=== PATIENT | male | born 2000 | race Two or more races ===

== ENCOUNTER 2020-06-09 23:32 | Emergency (ER) | payer SELFPAY ==
[~2020-06-09] VITALS: Ht 170.2 cm; Wt 81.6 kg
[~2020-06-09 23:32] MED LIST: BACTRIM DS TAB1 EAC1 ORAL; CEPHALEXIN500 MG PO; CLINDAMYCIN HC300 MG ORAL; IBUPROFEN600 MG ORAL; KEFLEX500 MG ORAL; NKM; ONDANSETRON ODT4 MG ORAL; VICODIN1 TA1 ORAL
--- NOTE | 2020-06-09 23:32 | Emergency Room Report ---
History of Present Illness General Chief Complaint: Nausea Source: Patient, EMS Present Illness HPI Patient is a 20-year-old male brought in by EMS after increased nausea and vomiting. Recent ingestion of marijuana. Reports having one episode of emesis. Denies any pain. Ingested an edible reportedly. Denies any current complaints otherwise. Denies any hematemesis. Allergies: Coded Allergies: No Known Allergies (Unverified , 12/07/12) COVID-19 Screening Contact w/high risk pt: No Experienced COVID-19 symptoms?: No COVID-19 Testing performed BRAND COMMUNICATIONS MANAGER: No Patient History Past Medical History: see triage record Reviewed Nursing Documentation: PMH: Agreed; PSxH: Agreed Nursing Documentation-PMH Past Medical History: No Stated History Review of Systems All Other Systems: negative except mentioned in HPI Physical Exam Vital Signs Date Time Temp Pulse Resp B/P (MAP) Pulse Ox O2 Delivery O2 Flow Rate FiO2 06/09/20 23:25 97.3 84 16 142/68 (92) 99 Room Air Sp02 EP Interpretation: reviewed, normal General Appearance: normal inspection, well appearing, no apparent distress, alert, GCS 15 Head: atraumatic ENT: normal ENT inspection, hearing grossly normal, normal voice Neck: normal inspection, full range of motion, supple, no bony tend Respiratory: normal inspection, lungs clear, normal breath sounds, no respiratory distress, no retraction, no wheezing Cardiovascular #1: regular rate, rhythm, no edema Gastrointestinal: normal inspection, normal bowel sounds, non tender, soft, no guarding, no hernia Genitourinary: no CVA tenderness Musculoskeletal: normal inspection, back normal, normal range of motion Neurologic: alert, motor strength/tone normal, music therapist III-XII nml as tested, orien nannette x3, responsive, speech normal, normal inspection Psychiatric: normal inspection, judgement/insight normal, mood/affect normal Skin: no rash Medical Decision Making Diagnostic Impression: Primary Impression: Accidental marijuana overdose Additional Impression: Nausea and vomiting in adult patient ER Course Patient presented for nausea and vomiting. Differential diagnosis include was not limited to marijuana ingestion, hyperemesis, coingestion among others. Because of complexity of patient's case laboratory tests and imaging studies were ordered. Labs Test 06/09/20 23:40 White Blood Count 15.6 K/UL (4.8-10.8) Red Blood Count 4.76 M/UL (4.70-6.10) Hemoglobin 15.4 G/DL (14.2-18.0) Hematocrit 42.0 % (42.0-52.0) Mean Corpuscular Volume 88 FL (80-99) Mean Corpuscular Hemoglobin 32.3 PG (27.0-31.0) Mean Corpuscular Hemoglobin Concent 36.7 G/DL (32.0-36.0) Red Cell Distribution Width 10.9 % (11.6-14.8) Platelet Count 314 K/UL (150-450) Mean Platelet Volume 5.7 FL (6.5-10.1) Neutrophils (%) (Auto) 81.4 % (45.0-75.0) Lymphocytes (%) (Auto) 12.7 % (20.0-45.0) Monocytes (%) (Auto) 4.8 % (1.0-10.0) Eosinophils (%) (Auto) 0.1 % (0.0-3.0) Basophils (%) (Auto) 1.0 % (0.0-2.0) Sodium Level 139 MMOL/L (136-145) Potassium Level 3.5 MMOL/L (3.5-5.1) Chloride Level 103 MMOL/L (98-107) Carbon Dioxide Level 29 MMOL/L (21-32) Anion Gap 7 mmol/L (5-15) Blood Urea Nitrogen 9 mg/dL (7-18) Creatinine 1.0 MG/DL (0.55-1.30) Estimat Glomerular Filtration Rate > 60 mL/min (>60) Glucose Level 138 MG/DL (74-106) Calcium Level 8.7 MG/DL (8.5-10.1) Total Bilirubin 0.3 MG/DL (0.2-1.0) Aspartate Amino Transf (AST/SGOT) 21 U/L (15-37) Alanine Aminotransferase (ALT/SGPT) 17 U/L (12-78) Alkaline Phosphatase 93 U/L (46-116) Total Protein 7.0 G/DL (6.4-8.2) Albumin 4.0 G/DL (3.4-5.0) Globulin 3.0 g/dL Albumin/Globulin Ratio 1.3 (1.0-2.7) Lipase 78 U/L (73-393) Acetaminophen Level < 2 MCG/ML (10-30) Serum Alcohol < 3 mg/dL Last Vital Signs Date Time Temp Pulse Resp B/P (MAP) Pulse Ox O2 Delivery O2 Flow Rate FiO2 06/09/20 23:25 97.3 84 16 142/68 (92) 99 Room Air Status: improved Disposition: HOME, SELF-CARE Condition: Stable Scripts Ondansetron Odt* (ZOFRAN ODT*) 4 Mg Tab.rapdis 4 MG ORAL EVERY 8 HOURS, #10 TAB 0 Refills Prov: Prudencio Cazares MD 06/10/20 Prudencio Cazares MD Jun 09, 2020 23:32
[2020-06-09 23:35] VITALS: BP 142/68
--- NOTE | 2020-06-09 23:35 | NUR ---
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 Patient began to feel nauseous and called 911. Patient breathing is normal and unlabored. NAD noted. Pt in bed, safety measures met; will continue to monitor. He is AAOX4.
[2020-06-09 23:57] LABS: EOSINOPHILS % (AUTO) 0.1 % (0.0-3.0); HEMOGLOBIN 15.4 G/DL (14.2-18.0); LYMPHOCYTES % (AUTO) 12.7 % (20.0-45.0); MEAN CORPUSCULAR VOLUME 88 FL (80-99); MONOCYTES % (AUTO) 4.8 % (1.0-10.0); NEUTROPHILS % (AUTO) 81.4 % (45.0-75.0); PLATELET COUNT 314 K/UL (150-450); RED BLOOD COUNT 4.76 M/UL (4.70-6.10); RED CELL DISTRIBUTION WIDTH 10.9 % (11.6-14.8); WHITE BLOOD COUNT 15.6 K/UL (4.8-10.8)
[2020-06-10 00:08] LABS: ANION GAP 7 mmol/L (5-15); BLOOD UREA NITROGEN 9 mg/dL (7-18); CALCIUM 8.7 MG/DL (8.5-10.1); CARBON DIOXIDE 29 MMOL/L (21-32); CHLORIDE 103 MMOL/L (98-107); POTASSIUM 3.5 MMOL/L (3.5-5.1); SODIUM 139 MMOL/L (136-145)
[2020-06-10 00:12] LABS: ALANINE AMINOTRANSFERASE 17 U/L (12-78); ALBUMIN/GLOBULIN RATIO 1.3 (1.0-2.7); ALKALINE PHOSPHATASE 93 U/L (46-116); ASPARTATE AMINO TRANSFERASE 21 U/L (15-37); BILIRUBIN,TOTAL 0.3 MG/DL (0.2-1.0)
--- NOTE | 2020-06-10 01:00 | NUR ---
ED Nurse Note: Patient is sleeping in bed, NAD noted. Breathing is normal and unlabored. Will cont. to monitor.
[2020-06-10] MEDS ORDERED: ONDANSETRON ODT4 MG ORAL (01:37)
[2020-06-10 02:20] VITALS: BP 128/70
--- NOTE | 2020-06-10 02:20 | NUR ---
ED Nurse Note: Patient ambulated to restroom with steady gait.
--- NOTE | 2020-06-10 03:00 | NUR ---
ED Nurse Note: ERMD ok with not obtaining urine sample.
--- NOTE | 2020-06-10 03:15 | NUR ---
ED Nurse Note: Patient woke up and stated he was ready to go home. No episode of vomiting since being in the ER. He states he feels better.
[2020-06-10 03:25] VITALS: BP 125/77
--- NOTE | 2020-06-10 03:25 | NUR ---
ER DISCHARGE NOTE: Patient is cleared to be discharged per ERMD, pt is aox4, on room air, with stable vital signs. pt was given dc and prescription instructions, pt was able to verbalize understanding, pt id band and iv site removed without complications. pt is able to ambulate with steady gait. pt took all belongings.
== END 2020-06-10 03:25 | disposition home or self-care (01) ==
LOC: EDBD 23:32 → EMR 23:48
DX: T40.7X1A Poisoning by cannabis (derivatives), accidental (unintentional), initial encounter (principal); Y92.9 Unspecified place or not applicable; R11.2 Nausea with vomiting, unspecified
CPT/HCPCS: 36415; 80053; 83690; 85025; 96361; 96374; 99284; G0480; J2405; J7030

== ENCOUNTER 2020-08-03 04:43 | Emergency (ER) | payer MEDICAID ==
[~2020-08-03] VITALS: Ht 172.7 cm; Wt 85.7 kg
[2020-08-03 04:56] VITALS: BP 124/66
--- NOTE | 2020-08-03 04:56 | NUR ---
ED Nurse Note: pt ambulated into ed from home co lower abdominal pain that radiates to anus 02/04 with bright red blood in stool. pt denies hx of hemorroids but reports n/v and recent constipation followed by diarrhea. Pt aao x 4, ambulates with steady gait, VSS no ss of distress noted. will continue to monitor. awaiting ermd at bedside, awaiting further orders.
--- NOTE | 2020-08-03 05:03 | NUR ---
ED Nurse Note: ERMD at bedside
--- NOTE | 2020-08-03 05:05 | NUR ---
ED Nurse Note: Pt requested male nurse at bedside; provided during ERMD exam of anus.
[2020-08-03] MEDS ORDERED: ANUSOL-HC30 GM RC (05:09)
[2020-08-03] MEDS ORDERED: COLACE100 MG ORAL (05:09)
[2020-08-03] MEDS ORDERED: ONDANSETRON ODT4 MG BC (05:09)
--- NOTE | 2020-08-03 05:09 | Emergency Room Report ---
History of Present Illness General Chief Complaint: Abdominal Pain Source: Patient Present Illness HPI 19-year-old male no prior medical history presents with chief complaint of rectal pain and bright red bleeding per rectum when he strains to use the bathroom. Also states that he has been constipated but also alternating with diarrhea. Last bowel movement was 2 days ago. He is passing flatus. Denies vomiting, chest pain, shortness of breath, back pain, fever, chills, hematuria, flank pain, scrotal/testicular pain, penile discharge, dysuria, cough, abdominal trauma, blood thinners or other symptoms. Patient is sexually active with males and females. He denies hx or concern for sexually transmitted infection. The patient's symptoms were gradual onset, severity was moderate, duration since 1 week Quality: Bright red Past medical history: Denies Past surgical history: Denies Smoking: Denies Alcohol use: Denies Drug use: Marijuana Review of systems: CONST: No fevers or chills, No night sweats PULMONARY: No productive cough, No shortness of breath CARDIAC: No chest pain, No palpitations GI: No vomiting, ++ diarrhea , No melena_or_BRBPR : No dysuria, No hematuria, No discharge NEURO: No new_focal_weakness_or_numbness, No confusion, No vision changes 14 point Review of Systems is otherwise negative except per HPI Physical Exam: GENERAL: Awake_alert_ nontoxic, no acute distress Spo2 98% on RA -normal EYES: Extraocular muscles are intact. Conjunctivae clear. Lids without swelling ENT: External nose and ear normal_in_appearance. Oropharynx clear. Head_atraumatic, Moist_oral_mucosa NECK: No JVD. No meningismus. No thyromegaly. Supple. Trachea midline RESP: Normal respiratory effort. Symmetric rise. No stridor. Clear_to_auscultation_No_rales_No_wheezes CARDIAC: Regular rate and regular rhytm. No_significant pedal edema. ABDOMEN: Soft. Nondistended. Nontender_No_rebound_or_guarding. Negative Barrios's. Negative Rovsing's. Negative psoas sign. No CVA tenderness to palpation Rectal exam: Performed with RN [place] as analytical research chemist at bedside. Patient has 6:00 nonthrombosed external hemorrhoid. No anal fissure Patient refused internal rectal examination no active hemorrhage. MSK: Normal muscle tone, without rigidity. Extremities without asymmetric deformity or swelling. SKIN: Warm and dry. No visible cyanosis or pallor NEUROLOGIC: Alert, oriented x3. Motor_and_sensation_grossly_intact. No truncal ataxia. Gait_normal Psych: Normal mood and affect, normal judgment and insight - COORDINATION OF CARE Case was discussed with: Patient Any labs and imaging that were ordered were interpreted as part of the medical decision making: Patient was last here in ED for similar complaint of diarrhea. UDS was positive for marijuana and he was discharged. Medical Decision Making/Plan: Differential diagnosis includes hemorrhoid, anal fissure, constipation, gastritis, pancreatitis, IBD, gastroparesis, gastritis, peptic ulcer disease, DOUBT cholecystitis, choledocholithiasis, hepatitis, small bowel obstruction, volvulus, AAA, atypical appendicitis, among others. Patient is well appearing with stable vital signs. Abdominal exam is non peritoneal with no guarding or rebound. Rectal exam is notable for nonthrombosed external hemorrhoid. No anal fissures. 0521: Patient states that he feels better now after being medicated and does not want to wait for labs. Risk, benefits discussed. He wants to leave before completion of workup. Labs were collected but will be cancelled at this time. Patient states he will follow up with his PMD for continued management. He is able to tolerate PO upon discharge. Patient is afebrile, without any significant tenderness in the RUQ, and a negative Statham sign. The patients presentation does not appear to be consistent with acute cholecystitis and thus definitive imaging to rule it out was not pursued. The patient has no significant risk factors for AAA (abdominal aortic aneurysm) such as age over 50 with history of hypertension, connective tissue disorder, or 1st degree relative with AAA. the patient has normal dorsalis pedis pulses, no radiation of pain to the back, and no pulsatile mass felt on exam. The pat ients profile was overall low risk for AAA and definitive workup was not pursued. Patient is stable for discharge Allergies: Coded Allergies: No Known Allergies (Unverified , 12/07/12) COVID-19 Screening Contact w/high risk pt: No Experienced COVID-19 symptoms?: No COVID-19 Testing performed AUTOMATIC STACKER: No - june 2020 COVID-19 Screening: Negative COVID-19 Nursing Documentation-PMH Past Medical History: No History, Except For Hx Cardiac Problems: No Hx Gastrointestinal Problems: No Physical Exam Vital Signs Date Time Temp Pulse Resp B/P (MAP) Pulse Ox O2 Delivery O2 Flow Rate FiO2 08/03/20 04:46 98.2 82 18 124/66 (85) 97 Room Air Sp02 EP Interpretation: reviewed, normal Medical Decision Making Diagnostic Impression: Primary Impression: External hemorrhoid Additional Impression: Bright red rectal bleeding Rhythm Strip Diag. Results Rhythm Strip Time: 05:07 EP Interpretation: yes Rate: 97 Rhythm: NSR, no PVC's, no ectopy Last Vital Signs Date Time Temp Pulse Resp B/P (MAP) Pulse Ox O2 Delivery O2 Flow Rate FiO2 08/03/20 04:46 98.2 82 18 124/66 (85) 97 Room Air Disposition: HOME, SELF-CARE Admit Decision Time: 06:00 Condition: Stable Scripts Hydrocortisone Hc 2.5% Cream (ANUSOL-HC 2.5% CREAM) Y Cr 30 GM RC DAILY for 30 Days, #30 GM Prov: Valery Jo D.O. 08/03/20 Ondansetron Odt* (ZOFRAN ODT*) 4 Mg Tab.rapdis 4 MG BC EVERY 8 HOURS, #10 TAB 0 Refills Prov: Valery Jo D.O. 08/03/20 Docusate Sodium* (COLACE*) 100 Mg Capsule 100 MG ORAL TWICE A DAY for 10 Days, #20 CAP Prov: Valery Jo D.O. 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 Eat high-fiber diet. Drink plenty of water. Follow-up with your doctor sooner if your condition requires a more timely clinical reevaluation. Return to the emergency department immediately if you feel that your condition is worsening or if you have any new or concerning symptoms. Review your discharge instructions and take any prescriptions given as instructed. [facility] PROVIDES FREE OR LOW-COST HEALTH SERVICES TO PEOPLE WHO CAN SHOW PROOF THAT THEY LIVE IN [facility]. TO FIND MORE CLINICS PARTNERED WITH [facility] TO PROVIDE SERVICE, PLEASE CALL . Valery Jo D.O. Aug 03, 2020 05:09
--- NOTE | 2020-08-03 05:12 | NUR ---
ED Nurse Note: pt refused lab work at this time. ERMD aware.
[2020-08-03] MEDS ORDERED: Docusate 100mg cap ORAL ONE (05:15)
[2020-08-03] MEDS ORDERED: Acetaminophen 500mg (ES) tab ORAL ONE (05:15)
--- NOTE | 2020-08-03 05:15 | NUR ---
ED Nurse Note: all medications administered, pt tolerated well no ss of distress noted. will continue to monitor.
[2020-08-03 05:23] VITALS: BP 118/71
--- NOTE | 2020-08-03 05:23 | NUR ---
ER DISCHARGE NOTE: Patient is cleared to be discharged home per ERMD, pt is aox4, 99% on room air, with stable vital signs. pt was given dc and prescription instructions, pt was able to verbalize understanding, pt id band removed without complications. pt is able to ambulate with steady gait. pt took all belongings.
== END 2020-08-03 05:23 | disposition home or self-care (01) ==
LOC: EMR 04:57
DX: K64.4 Residual hemorrhoidal skin tags (principal); K62.5 Hemorrhage of anus and rectum; K59.00 Constipation, unspecified; R19.7 Diarrhea, unspecified; F12.90 Cannabis use, unspecified, uncomplicated
CPT/HCPCS: 99282